=== PATIENT | male | born 1950 | race Caucasian/White ===

== ENCOUNTER → 2017-01-25 | Outpatient (CLI) | payer MEDICARE, OTHER ==
[~2017-01-25] MED LIST: CHOL500016 PO; HYDR12.58 PO; LOSA1TAB17 PO; METF750T2 PO; OMEG-33 PO; SIMV40TA3 PO; [UNRECOGNIZED DRUG - OTHER]
--- NOTE | 2017-01-25 08:55 | RAD ---
EXAM: ABDOMINAL ULTRASOUND. HISTORY: Splenic lymphoma. COMPARISON: CT 08/10/2016. FINDINGS: Sonographic evaluation of the abdomen was performed. The liver appears normal in parenchymal echotexture. The liver is somewhat enlarged spanning 19 cm. There are no focal lesions. The spleen measures 17.8 cm. The gallbladder is unremarkable without evidence of stones, wall thickening or pericholecystic fluid. There is no sonographic Valentin sign. The common duct measures 4 mm. The visualized portions of the head of the pancreas reveal no abnormality. The right kidney measures 11.6 cm. Cortical thickness and echogenicity are preserved. There is no hydronephrosis. The left kidney measures 12.4 cm. Cortical thickness and echogenicity are preserved. There is no hydronephrosis. The visualized portions of the abdominal aorta and inferior vena cava are grossly patent and normal in caliber. IMPRESSION: 1. Moderate hepatosplenomegaly. The spleen measures at least 17.8 cm. No focal lesions are regional sonographically.
== END | disposition home or self-care (01) ==
LOC: US 07:36
PROVIDERS: ATTEND Internal Medicine Hematology & Oncology
DX: C85.97 Non-Hodgkin lymphoma, unspecified, spleen (principal); C83.07 Small cell B-cell lymphoma, spleen; R16.2 Hepatomegaly with splenomegaly, not elsewhere classified
CPT/HCPCS: 76700

== ENCOUNTER → 2017-10-28 | Outpatient (CLI) | payer MEDICARE, OTHER ==
[~2017-10-28] MED LIST changes: -LOSA1TAB17 PO; +LOSA1TAB22 PO
--- NOTE | 2017-10-28 12:42 | RAD ---
Complete abdominal ultrasound 10/28/2017 Indication: Splenomegaly. Patient with history of lymphoma. Comparison study: Abdominal ultrasound January 25, 2017 Discussion: Ultrasound evaluation of the abdomen was performed. Static images were submitted to PACS. Visualized portions of the pancreas are unremarkable. The aorta demonstrates changes of atherosclerotic vascular disease. The aorta and IVC are otherwise grossly unremarkable. Portal venous flows is in the normal direction with a normal velocity. Common bile duct is normal in diameter for age measuring 4.6 mm. The liver is top normal in size measuring 18 cm longitudinally. Liver is normal in echotexture. No focal hepatic lesions are identified. The right kidney is normal in appearance measuring 12.6 cm in length. Left kidney is normal in appearance measuring 13.7 cm in length. The spleen is mildly enlarged measuring 15 cm longitudinally. This represents a decrease since prior study which time the spleen measures approximately 18 cm longitudinally. Accessory splenule appears to be present measuring 2 cm in diameter. Similar findings noted on prior study. Impression: 1. Persistent splenomegaly, though the spleen seems to have decreased in size in the interim 2. Borderline hepatomegaly
== END | disposition home or self-care (01) ==
LOC: US 08:37
PROVIDERS: ATTEND Internal Medicine Hematology & Oncology
DX: C83.07 Small cell B-cell lymphoma, spleen (principal); R16.2 Hepatomegaly with splenomegaly, not elsewhere classified; I70.0 Atherosclerosis of aorta
CPT/HCPCS: 76700

== ENCOUNTER → 2017-10-28 | Outpatient (CLI) | payer MEDICARE, OTHER ==
--- NOTE | 2017-10-28 12:59 | RAD ---
Right lower extremity venous duplex ultrasound. 10/28/2017 12:56 PM Indication: Right lower extremity edema Comparison study: None Discussion: Sonographic evaluation of the deep veins of the right lower extremity was performed. This includes grayscale imaging and color duplex imaging with spectral analysis. No evidence of deep venous thrombosis is seen. Interrogated veins are compressible and demonstrate augmentable blood flow and color Doppler imaging. Impression: No evidence of deep venous thrombosis involving the right lower extremity
== END | disposition home or self-care (01) ==
LOC: US 08:46
DX: R60.0 Localized edema (principal)
CPT/HCPCS: 93971